=== PATIENT | female | born 1955 | race Caucasian/White ===

== ENCOUNTER 2020-12-10 12:08 | Inpatient (IN) | payer MEDICARE, OTHER, SELFPAY ==
[2020-12-10] VITALS (7 sets, daily range): BP systolic 155–187; BP diastolic 86–98; PULSE 74–96; RESP 16–20; TEMP 36.8–37.1; O2SAT 95–99; BMI 43.7
--- NOTE | ~2020-12-10 | US_ITS ---
EXAMINATION: US venous doppler [facility] DATE: 12/10/2020 13:56 INDICATION: Left lower limb pain and swelling TECHNIQUE: Jeffries scale images without and with compression and Doppler images of the left lower extrem ity veins were obtained. COMPARISON: None FINDINGS: The left common femoral vein, profunda femoral vein, femoral vein, popliteal vein, peroneal trunk, posterior tibial veins, and greater saphenous vein are patent. A 5.1 cm Wen's cyst is noted in the popliteal fossa. IMPRESSION: 1. Patent left lower extremity veins. No evidence of deep venous thrombosis. 2. Wen's cyst. Reviewed, dictated and finalized at location A. NT SERVER DEVELOPER
--- NOTE | ~2020-12-10 | CT_ITS ---
EXAMINATION: CTA chest PE protocol DATE: 12/10/2020 14:03 INDICATION: Shortness of breath, increasing over the past several days TECHNIQUE: Computed tomography angiography (CTA) of the chest was performed with 100 mL Omnipaque-350 intravenous contrast timed to evaluate the pulmonary arteries. Coronal maximum intensity projection 3D-reconstructions were created by the technologist. Automated exposure control and iterative reconst ruction technique were employed. Exam dose: 959.35 mGy-cm total exam DLP. COMPARISON: December 10, 2020 portable AP chest FINDINGS: There is diagnostic contrast enhancement of the pulmonary arteries and no evidence of pulmo nary embolism. No thoracic aortic aneurysm or dissection. Thyroid goiter with enlargement an inhomogeneous contrast enhancement involving particularly the left lobe of the thyroid gland. No hilar or mediastinal mass lesion or lymphadenopathy. No pericardial or pleural effusion. There are scattered bilateral patchy infiltrates suggesting extensive bilateral pneumonia. Status post cholecystectomy. Normal morphology of the adrenal glands. IMPRESSION: No evidence of pulmonary embolism Extensive scattered bilateral pulmonary infiltrates, suggesting bilateral pneumonia Reviewed, dictated and finalized at Location A. Reviewed, dictated and finalized at location B. ICATION DEVELOPMENT SPECIALIST IMPRESSION: No evidence of pulmonary embolism Extensive scattered bilateral pulmonary infiltrates, suggesting bilateral pneum onia
--- NOTE | ~2020-12-10 | XR_ITS ---
EXAMINATION: XR chest 1V portable INDICATION: Shortness of breath and hypertension TECHNIQUE: Portable AP chest at 1247 hours COMPARISON: 12/10/2020 FINDINGS: Diffuse opacities persist throughout all lung zones with slight worsening in the left mid a nd lower lung zones. There is no pleural effusion or pneumothorax. Cardiomegaly is noted. IMPRESSION: 1. Diffuse lung disease with interval worsening in the left mid and lower lung zones, consistent with pneumonia and pulmonary edema. Reviewed, dictated and finalized at location A. S CONTRACTOR
--- NOTE | ~2020-12-10 | XR_ITS ---
EXAMINATION: XR chest 1V portable INDICATION: Shortness of breath TECHNIQUE: Portable AP chest at 1301 hours COMPARISON: 06/10/2009 FINDINGS: There are diffuse opacities throughout all lung zones. No pleural effusion or pneumothorax is identified. The cardiomediastinal silhouette is normal. IMPRESSION: 1. Diffuse lung disease which may reflect pneumonia and/or pulmonary edema and/or atelectasis. Reviewed, dictated and finalized at location A. EN PRINTING LOADER UNLOADER IMPRESSION: 1. Diffuse lung disease which may reflect pneumonia and/or pulmonary edema and/ or atelectasis.
--- NOTE | 2020-12-10 12:23 | ECG_ITS ---
Measurements Intervals [place] Rate: 97 P: 8 OK: 128 QRS: 2 QRSD: 82 T: 33 QT: 338 QTc: 430 Interpretive Statements SINUS RHYTHM EARLY PRECORDIAL R/S TRANSITION VOLTAGE CRITERIA FOR LVH BORDERLINE ST ABNORMALITY- ANT/HIGH LAT LEADS BORDERLINE ECG Electronically Signed On 12-10-2020 13:05:22 SPANISH LECTURER by Maurizio Cr D.O.
[2020-12-10 12:49] LABS: Basophils Percent Auto 0.4 % (0.2-1.2); Eosinophils Percent Auto 0.4 % (0-4.4); Hematocrit 34.1 % (37.0-47.0); Hemoglobin 11.5 g/dL (12.0-15.0); Immature Granulocyte Absolute 0.05 K/mm3 (0.00-0.031); Immature Granulocyte Percent A 1.9 % (0-0.5); Lymphocytes Absolute Auto 0.58 K/mm3 (0.9-3.2); Lymphocytes Percent Auto 21.6 % (18.3-44.2); Mean Corpuscular HGB Conc 33.7 g/dl (32-36); Mean Corpuscular Hemoglobin 29.3 pg (26-34); Monocytes Absolute Auto 0.5 K/mm3 (0.1-0.6); Monocytes Percent Auto 18.3 % (2.6-8.5); Neutrophils Absolute Auto 1.5 K/mm3 (1.3-6.7); Neutrophils Percent Auto 57.4 % (45.5-73.1); Platelet Count Result 143 k/mm3 (150-375); Red Blood Count 3.92 M/mm3 (4.2-5.4); Red Cell Distribution Width 14.5 % (11.5-14.5); White Blood Count 2.7 K/mm3 (4.5-10.0)
--- NOTE | 2020-12-10 13:01 | PC.NURSE ---
Called lab to add on BNP, hepatic, trop baseline, pt inr ptt, d dimer
[2020-12-10 13:02] LABS: Anion Gap 6 mmol/L (8-16); Blood Urea Nitrogen 8 mg/dL (7-17); Calcium 8.4 mg/dL (8.4-10.2); Carbon Dioxide 22 mmol/L (22-30); Chloride 109 mmol/L (98-107); Estimated CRCL calculation 90 ml/min; Estimated Glomerular Filt Rate > 60; Glucose 100 mg/dL (65-105); Potassium 3.2 mmol/L (3.4-5.0); Sodium 137 mmol/L (137-145)
[2020-12-10 13:10] LABS: INR 0.9
[2020-12-10 13:11] LABS: Partial Thromboplastin Time 27.5 SECONDS (22.3-36.8)
[2020-12-10 13:13] LABS: D Dimer 0.83 ug/mL (<0.48)
[2020-12-10] MEDS: ALBUTEROL SULFATE (*SP) AEROSOL 1 PUFF 6 PUFF INHALATION (13:14)
[2020-12-10 13:22] LABS: Alveolar/Arterial O2 Gradient 42.8 mmHg; Carboxyhemoglobin 0.7 % THb (0-2.0); Fractional Inspired Oxygen 21 %; HCO3 ABG 19.4 mEq/l (22.0-26.0); Oxygen Content ABG 19.3 %vol (16.0-22.0); Oxygen Saturation ABG 96.6 % (95.0-100.0); Oxyhemoglobin 95.2 % THb (90.0-100.0); PCO2 ABG 25.1 mmHg (35.0-45.0); PO2 ABG 76.9 mmHg (80.0-100.0); PO2 FiO2 Ratio Arterial Blood 3.66 %; Reduced Hemoglobin 4.1 %THb (0-5.0); Total Hemoglobin 14.4 g/dL (12.0-18.0)
[2020-12-10 13:23] LABS: Device ROOM AIR; Modified Allen's Test Pass; Site Drawn LEFT RADIAL; pH ABG 7.505 (7.350-7.450)
[2020-12-10 13:30] LABS: Alanine Aminotransferase 33 U/L (4-35); Albumin Level 3.6 g/dL (3.5-5.1); Alkaline Phosphatase 116 U/L (38-126); Aspartate Amino Transferase 53 U/L (14-36); Bilirubin,Total 0.7 mg/dL (0.2-1.3)
[2020-12-10] MEDS: SODIUM CHLORIDE 0.9% IV 1,000 ML 999 ML IV CONT (13:30)
--- NOTE | 2020-12-10 13:35 | ED.GENADULT ---
HPI - General Adult General Chief complaint: Shortness of Breath/Dyspnea Stated complaint: wheezing Time Seen by Provider: 12/10/20 12:26 Source: patient Mode of arrival: ambulatory Limitations: other (poor historian) History of Present Illness HPI narrative: This patient is a 65 year old female with history of asthma, hypertension, DM, anxiety who presents for evaluation of not feeling well . Patient had a virtual visit today with her PCP who reports patient was having cough, sob with audible wheezing. PAtient reported that her home oxygen pulse oximeter was reading in the high 80s. Patient states she does not want to talk so she is answering I don't know to most of my questions. She does reports midsternal chest pain last night but will not go into detail. She has not chest pain now. She has been ill since 11/30/20. She reports low grade fever 2 days ago. She denies abdominal pain. She reports left leg pain. Related Data Home Medications Medication Instructions Recorded Confirmed albuterol sulfate [ProAir HFA] INHALATION 12/10/20 bupropion HCl mg PO 12/10/20 carisoprodol 12/10/20 diclofenac sodium TOPICAL 12/10/20 estradiol mg 12/10/20 12/10/20 fluoxetine mg 12/10/20 furosemide 12/10/20 leflunomide mg 12/10/20 losartan 12/10/20 metformin mg PO 12/10/20 metformin mg PO 12/10/20 methenamine hippurate g 12/10/20 metoprolol succinate PO 12/10/20 montelukast mg 12/10/20 potassium chloride meq PO 12/10/20 topiramate 12/10/20 verapamil mg PO 12/10/20 Allergies Allergy/AdvReac Type Severity Reaction Status Date / Time doxycycline Allergy Mild RASH Verified 12/10/20 12:21 erythromycin base Allergy Unknown RASH Verified 12/10/20 12:21 levofloxacin Allergy Unknown Other Verified 12/10/20 12:21 Penicillins Allergy Unknown Other Verified 12/10/20 12:21 Sulfa (Sulfonamide Allergy Unknown Other Verified 12/10/20 12:21 Antibiotics) Review of Systems Review of Systems: All systems reviewed & are unremarkable except as noted in HPI and below Constitutional: Constitutional: Reports fatigue and Reports fever(s) Cardiovascular: Cardiovascular: Reports chest pain Respiratory: Respiratory: Reports cough and Reports dyspnea Gastrointestinal: Gastrointestinal: Denies abdominal pain, Reports nausea and Denies vomiting Neurologic: Reports headache(s) Endocrine: Endocrine: Reports fatigue [facility] Past Medical History Medical History (Updated 12/10/20 @ 17:02 by Fe Yeager MD) Asthma Diabetes mellitus Hypertension Surgical History Surgical History (Updated 12/10/20 @ 13:37 by Fe Yeager MD) Hx of tonsillectomy Family History Family History (Updated 08/09/14 @ 09:43 by DOCTOR UNKNOWN) Other Cerebrovascular accident Diabetes mellitus Family history of arthritis Family history of cardiovascular disease Family history of gout Family history of malignant neoplasm Hypertension Social History Social History Smoking status: Never smoker Alcohol intake: current Exam Const: General: alert and ill appearing Nutritional Appearance: obese Orientation/consciousness: patient oriented x3 Eyes: Pupils: Equal, round and reactive pupils present EOM: EOMs intact bilaterally Chest: Chest palpation & inspection: normal inspection of the chest and abnormal inspection of the chest Resp: Effort & Inspection: no retractions, tachypneic and no use of accessory muscles Auscultation: wheezes and lung sounds not diminished Cardio: Rate: regular rate Rhythm: regular rhythm Heart sounds: no murmurs GI: GI Palp: Yes Soft to palpation, No Tenderness to palpation present (GI) and No Guarding due to palpation present (GI) Auscultation: normal bowel sounds Neuro: General: patient oriented x3 and moves all extremities Psych: Affect: Anxious affect present Course Reevaluation(s) Reevaluation #1: I discussed with patient that she has been found to have bi
[2020-12-10 13:38] LABS: NT Pro B Type Natriuretic Pept 162 PG/ML (5-100); Troponin I < 0.012 ng/mL (0.000-0.034)
[2020-12-10 13:45] LABS: Add Urine Microscopic? YES; Appearance Urine Clear (Clear); Bacteria Urine Trace /hpf; Bilirubin Urine Negative (Negative); Blood Urine Negative (Negative); Color Urine Yellow (Yellow); Glucose Urine UA Negative (Negative); Ketones Urine Negative (Negative); Leukocyte Esterase Ur 1+ LEU/UL (Negative); Mucus Urine Rare /lpf; Nitrate Urine Negative (Negative); Protein Urine 2+ mg/dL (Negative); Specific Grav Ur 1.018 (1.001-1.035); Squamous Epithelial Cell Urine Many /hpf (Few); Urobilinogen Urine Negative mg/dL (<2.0)
[2020-12-10] MEDS: predniSONE 20 MG TABLET 60 MG PO (13:45)
[2020-12-10] MEDS: ACETAMINOPHEN 500 MG TABLET 1000 MG (15:14)
--- NOTE | 2020-12-10 15:44 | PC.NURSE ---
1514- Tylenol given per verbal order by Dr. Yeager for headache
--- NOTE | 2020-12-10 16:45 | PC.NURSE ---
This patient, April Rutledge, was admitted to 3 [facility] Surg Room 313-01. Patient/family oriented to hospital policies and general routines including ID bracelet, bed and alarms, visiting hours, pain management, procedures, bathroom and other care routines, personal items, smoking policy, room service/diet, and visiting hours.Reprot received from SAHIL RN Patient/Family are encouraged to report perceived risks to care and to ask questions if they do not understand what they are told or what they should do.
[2020-12-10 18:38] LABS: Glucose Point of Care 155 (65-105)
[2020-12-10] MEDS: SODIUM CHLORIDE 0.9% IV 1,000 ML 125 ML IV CONT (18:40)
--- NOTE | 2020-12-10 22:49 | PM.IMHP ---
H&P: HPI History of Present Illness Date/Time: 12/10/20 22:49 Chief Complaint: Shortness breath Narrative: April Rutledge is a 65 year old female who has a history of asthma. The patient has been having a cough and shortness of breath with audible wheezing. The patient has been sick since 11/30/2020. The patient stated that she had gone to a and that the other people came up positive for COVID. The patient has been having some nausea and vomiting diarrhea. She is weak in she is short of breath. She had a virtual visit with her primary care doctor. Patient lives at home with her who is also sick. The patient has had a home pulse ox which was read on the upper 80s. Her temperature was 98.7?. CT a pulmonary no evidence of pulmonary embolism. Venous Dopplers patent left lower extremity veins no evidence of any daytime on versus and Wen cyst. Chest x-ray was read as diffuse lung disease which may reflect pneumonia and/or pulmonary edema and/or atelectasis. The patient was given albuterol, IV fluids, azithromycin, Rocephin and Tylenol Review of Systems Constitutional: Constitutional: Reports as per HPI and Reports no additional constitutional complaints Eyes: Eyes: Reports as per HPI and Reports no additional eye complaints ENT: Reports system reviewed and no additional complaints, except as documented and Reports Normal hearing present Cardiovascular: Cardiovascular: Reports no additional cardiovascular complaints Respiratory: Respiratory: Reports as per HPI and Reports no additional respiratory complaints Gastrointestinal: Gastrointestinal: Reports as per HPI and Reports no additional gastrointestinal complaints Genitourinary: Genitourinary: Reports no additional female genitourinary complaints Musculoskeletal: Musculoskeletal: Reports no additional musculoskeletal complaints Integumentary/Breasts: Skin/Breast: Reports system reviewed and no additional complaints, except as docu Neurologic: Reports system reviewed and no additional complaints, except as documented and Reports Normal hearing present Psychiatric: Psychiatric: Reports no additional psychiatric complaints and Reports as per HPI Hematologic/Lymphatic: Hematologic/Lymphatic: Reports no additional hematologic/lymphatic complaints Allergic/Immunologic: Allergic/Immunologic: Reports no additional allergic/immunologic complaints [facility] Past Medical History Medical History (Updated 12/10/20 @ 23:01 by Ilana Dawn NP) Asthma Chronic GERD Depression with anxiety Diabetes mellitus DM2 (diabetes mellitus, type 2) Hypertension Migraines Mitral valve prolapse Osteoarthritis Psoriatic arthritis Surgical History Surgical History (Updated 12/10/20 @ 23:01 by Ilana Dawn NP) H/O hand surgery Bilaterally H/O: hysterectomy History of ankle surgery Bilaterally History of salpingo-oophorectomy Hx of tonsillectomy Family History Family History Father Cerebrovascular accident Family history of gout Malignant neoplasm of prostate Mother Diabetes mellitus Family history of arthritis Family history of cardiovascular disease Family history of malignant neoplasm Hypertension Grandparent Diabetes mellitus Social History Social History (Updated 12/10/20 @ 23:03 by Ilana Dawn NP) Social History: The patient lives with her . The is a durable power admitted attorneys for healthcare. The patient is a full code. 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 Lifelong nonsmoker does not use marijuana or illicit drugs. Smoking status: Never smoker Alcohol intake: never Substance use: never Gender identity (if verbalized by the patient): Female Spiritual care concerns: No Meds Home Medications and Allergies Home Medications Medication Instructions Recorded Confirmed Type albuterol sulfate [ProAir HFA] 2 puff INHALATION Q6H PRN 12/10/20 0
[2020-12-10] MEDS: guaiFENesin/DEXTROMETHORPHAN 10 ML UDC PO (23:17)
[2020-12-10] MEDS: ACETAMINOPHEN 500 MG TABLET 1000 MG PO (23:17)
[2020-12-10] MEDS: MONTELUKAST SODIUM 10 MG TABLET PO (23:52)
[2020-12-10] MEDS: FLUoxetine HCL 20 MG CAPSULE 40 MG PO (23:52)
[2020-12-10] MEDS: AZELASTINE HCL NASAL 0.1% 137 MCG/SPR 30 ML BTL 2 SPRAY NASAL (23:52)
[2020-12-10] MEDS: ASCORBIC ACID 500 MG TABLET PO (23:52)
[2020-12-11] VITALS (7 sets, daily range): BP systolic 143–183; BP diastolic 70–90; PULSE 73–84; RESP 16–20; TEMP 36.1–36.6; O2SAT 96–99
[2020-12-11] MEDS: ALBUTEROL SULFATE (*SP) AEROSOL 1 PUFF 2 PUFF INHALATION ×4 (01:10→20:40)
[2020-12-11 02:14] LABS: Basophils Percent Auto 0.6 % (0.2-1.2); Hematocrit 31.7 % (37.0-47.0); Hemoglobin 10.5 g/dL (12.0-15.0); Immature Granulocyte Absolute 0.03 K/mm3 (0.00-0.031); Immature Granulocyte Percent A 1.8 % (0-0.5); Lymphocytes Absolute Auto 0.43 K/mm3 (0.9-3.2); Lymphocytes Percent Auto 26.2 % (18.3-44.2); Mean Corpuscular HGB Conc 33.1 g/dl (32-36); Mean Corpuscular Hemoglobin 28.8 pg (26-34); Mean Corpuscular Volume 87.1 fl (80-100); Mean Platelet Volume 9.9 fl (7.4-10.4); Monocytes Absolute Auto 0.3 K/mm3 (0.1-0.6); Monocytes Percent Auto 18.3 % (2.6-8.5); Neutrophils Absolute Auto 0.9 K/mm3 (1.3-6.7); Neutrophils Percent Auto 53.1 % (45.5-73.1); Platelet Count Result 154 k/mm3 (150-375); Red Blood Count 3.64 M/mm3 (4.2-5.4); Red Cell Distribution Width 14.5 % (11.5-14.5)
[2020-12-11 02:20] LABS: Alanine Aminotransferase 33 U/L (4-35); Albumin Level 3.4 g/dL (3.5-5.1); Alkaline Phosphatase 103 U/L (38-126); Anion Gap 7 mmol/L (8-16); Aspartate Amino Transferase 45 U/L (14-36); Bilirubin,Total 0.4 mg/dL (0.2-1.3); Blood Urea Nitrogen 9 mg/dL (7-17); Calcium 8.4 mg/dL (8.4-10.2); Carbon Dioxide 24 mmol/L (22-30); Chloride 111 mmol/L (98-107); Estimated CRCL calculation 90 ml/min; Estimated Glomerular Filt Rate > 60; Glucose 180 mg/dL (65-105); Potassium 3.5 mmol/L (3.4-5.0); Sodium 142 mmol/L (137-145)
[2020-12-11 02:24] LABS: Hemoglobin A1C 5.3 % (<5.7)
[2020-12-11 02:41] LABS: White Blood Count 1.6 K/mm3 (4.5-10.0)
[2020-12-11 08:35] LABS: Glucose Point of Care 109 (65-105)
[2020-12-11] MEDS: buPROPion HCL XL (24 HR) 150 MG TABCR 300 MG PO (09:36)
[2020-12-11] MEDS: VERAPAMIL HCL ER 240 MG TABLET.ER PO (09:36)
[2020-12-11] MEDS: LOSARTAN POTASSIUM 100 MG TABLET PO (09:36)
[2020-12-11] MEDS: AZELASTINE HCL NASAL 0.1% 137 MCG/SPR 30 ML BTL 2 SPRAY NASAL ×2 (09:37→20:40)
[2020-12-11] MEDS: guaiFENesin/DEXTROMETHORPHAN 10 ML UDC PO ×3 (09:37→20:40)
[2020-12-11] MEDS: METOPROLOL SUCCINATE EXT REL 50 MG TABCR PO (09:38)
[2020-12-11] MEDS: FOLIC ACID 1 MG TABLET PO (09:39)
[2020-12-11] MEDS: predniSONE 20 MG TABLET 60 MG PO (09:39)
[2020-12-11] MEDS: ENOXAPARIN 40 MG/0.4 ML SYRINGE SUB-Q (09:39)
[2020-12-11 13:12] LABS: SARS-CoV-2 RNA PCR Positive
[2020-12-11 13:14] LABS: Glucose Point of Care 96 (65-105)
[2020-12-11] MEDS: PANTOPRAZOLE 40 MG TABLET PO (15:52)
[2020-12-11 18:27] LABS: Glucose Point of Care 174 (65-105)
--- NOTE | 2020-12-11 18:54 | PM.IMPN ---
Progress Note: A&P Assessment and Plan (1) Community acquired pneumonia: Code(s): J18.9 - Pneumonia, unspecified organism Status: Acute Assessment and Plan: On Rocephin and Zithromax Ruling out Covid 19 (2) Person under investigation for COVID-19: Code(s): Z20.822 - Contact with and (suspected) exposure to COVID-19 Status: Acute Assessment and Plan: Awaiting serology Supportive care (3) Asthma with exacerbation: Code(s): J45.901 - Unspecified asthma with (acute) exacerbation Status: Acute Assessment and Plan: Breathing treatments. (4) Mitral valve prolapse: Code(s): I34.1 - Nonrheumatic mitral (valve) prolapse Status: Chronic Assessment and Plan: Stable Continue to monitor (5) Chronic GERD: Code(s): K21.9 - Gastro-esophageal reflux disease without esophagitis Status: Chronic Assessment and Plan: On PPI (6) Hypertension: Code(s): I10 - Essential (primary) hypertension Status: Chronic Assessment and Plan: Stable Continue home meds Continue to monitor (7) DM2 (diabetes mellitus, type 2): Code(s): E11.9 - Type 2 diabetes mellitus without complications Status: Chronic Assessment and Plan: Accu checks ACHS ISS as needed (8) Osteoarthritis: Code(s): M19.90 - Unspecified osteoarthritis, unspecified site Status: Chronic Assessment and Plan: Stable On Leflunomide (9) Psoriatic arthritis: Code(s): L40.50 - Arthropathic psoriasis, unspecified Status: Chronic Assessment and Plan: Stable On Leflunomide. Subjective Date/time seen: 12/11/20 18:54 Patient states that doesn't feel well. Review of Systems Review of Systems: Narrative: sob, dry cough x 3 days Constitutional: Constitutional: Reports fatigue, Reports lethargy and Reports malaise Comments: fevers, chills. ENT: Reports nasal congestion Cardiovascular: Comments: no chest pain, no orthopnea. Respiratory: Comments: dry cough, sob. Gastrointestinal: Comments: no n/v/abdominal/diarrhea Genitourinary: Comments: no pain or burning with urination. Musculoskeletal: Musculoskeletal: Reports myalgias Integumentary/Breasts: Comments: no rashes Exam Narrative: Exam Narrative: Lying in bed Const: General: no acute distress, alert, awake and ill appearing Nutritional Appearance: average body habitus Orientation/consciousness: patient oriented x3 Limitations: no limitations HENMT: Head: normal to inspection and normocephalic Ears: hearing grossly normal bilaterally General nose exam: Normal external nose present Face and sinus: normal facial exam Eyes: General: appearance normal, both eyes and all related structures Pupils: Equal, round and reactive pupils present EOM: EOMs intact bilaterally Neck: Neck: no lymphadenopathy, supple and no JVD Resp: Effort & Inspection: able to speak in complete sentences Auscultation: clear to auscultation bilaterally and diminished lung sounds Cardio: Jugular venous distension: no JVD Rate: regular rate Rhythm: regular rhythm GI: GI Palp: Yes Soft to palpation and Yes No hepatosplenomegaly present Skin: Rashes: no rashes Neuro: General: patient oriented x3 and CN's II-XI intact bilaterally Cranial nerves: Yes CN's II-XII intact bilaterally and Yes Equal, round and reactive pupils present Cognition (Neuro): normal cognition Speech: normal speech Motor exam (neuro): 5/5 motor strength present throughout Extrem: General: no pedal edema Objective Data Vital Signs Vital Signs: Vital Signs - 24 hr 12/10/20 20:00 12/10/20 22:00 12/11/20 00:00 Temperature 98.7 F 97 F L Pulse Rate 85 81 Respiratory Rate 18 16 Blood Pressure 155/86 H 163/87 H Pulse Oximetry 98 99 96 12/11/20 04:00 12/11/20 08:00 12/11/20 09:38 Temperature 97.8 F 97.6 F Pulse Rate 81 73 82 Respiratory Rate 16 16 Blood Pressure 173/87 H 183/90 H
[2020-12-11] MEDS: ASCORBIC ACID 500 MG TABLET PO (20:37)
[2020-12-11] MEDS: FLUoxetine HCL 20 MG CAPSULE 40 MG PO (20:37)
[2020-12-11] MEDS: MONTELUKAST SODIUM 10 MG TABLET PO (20:37)
[2020-12-11 21:28] LABS: Glucose Point of Care 190 (65-105)
[2020-12-11] MEDS: ACETAMINOPHEN 500 MG TABLET 1000 MG PO (22:52)
[2020-12-12] VITALS (8 sets, daily range): BP systolic 146–179; BP diastolic 62–93; PULSE 64–81; RESP 16–20; TEMP 36.5–36.9; O2SAT 96–100
[2020-12-12] MEDS: ALBUTEROL SULFATE (*SP) AEROSOL 1 PUFF 2 PUFF INHALATION ×4 (02:15→20:46)
[2020-12-12] MEDS: guaiFENesin/DEXTROMETHORPHAN 10 ML UDC PO ×4 (02:17→20:46)
[2020-12-12 09:36] LABS: Glucose Point of Care 77 (65-105)
[2020-12-12] MEDS: predniSONE 20 MG TABLET 60 MG PO (09:54)
[2020-12-12] MEDS: buPROPion HCL XL (24 HR) 150 MG TABCR 300 MG PO (09:54)
[2020-12-12] MEDS: AZELASTINE HCL NASAL 0.1% 137 MCG/SPR 30 ML BTL 2 SPRAY NASAL ×2 (09:54→20:46)
[2020-12-12] MEDS: METOPROLOL SUCCINATE EXT REL 50 MG TABCR PO (09:55)
[2020-12-12] MEDS: FOLIC ACID 1 MG TABLET PO (09:55)
[2020-12-12] MEDS: ENOXAPARIN 40 MG/0.4 ML SYRINGE SUB-Q (09:55)
[2020-12-12] MEDS: PANTOPRAZOLE 40 MG TABLET PO (09:56)
[2020-12-12] MEDS: VERAPAMIL HCL ER 240 MG TABLET.ER PO (09:56)
[2020-12-12] MEDS: LOSARTAN POTASSIUM 100 MG TABLET PO (09:56)
[2020-12-12 13:13] LABS: Glucose Point of Care 116 (65-105)
[2020-12-12 18:10] LABS: Glucose Point of Care 128 (65-105)
--- NOTE | 2020-12-12 18:23 | PM.IMPN ---
Progress Note: A&P Assessment and Plan (1) Pneumonia due to COVID-19 virus: Code(s): U07.1 - COVID-19; J12.82 - Pneumonia due to coronavirus disease 2019 Status: Acute Assessment and Plan: Patient clinically improved Does not meet criteria for Remdesivir Supportive care On coverage for bacterial pneumonia empirically (2) Community acquired pneumonia: Code(s): J18.9 - Pneumonia, unspecified organism Status: Acute Assessment and Plan: On Rocephin Allergy to Zithromax and Doxycycline Clinically improved (3) Asthma with exacerbation: Code(s): J45.901 - Unspecified asthma with (acute) exacerbation Status: Acute Assessment and Plan: Breathing treatments On po Prednisone (4) Mitral valve prolapse: Code(s): I34.1 - Nonrheumatic mitral (valve) prolapse Status: Chronic Assessment and Plan: Stable Continue to monitor (5) Chronic GERD: Code(s): K21.9 - Gastro-esophageal reflux disease without esophagitis Status: Chronic Assessment and Plan: On PPI (6) Hypertension: Code(s): I10 - Essential (primary) hypertension Status: Chronic Assessment and Plan: Stable continue to monitor (7) DM2 (diabetes mellitus, type 2): Code(s): E11.9 - Type 2 diabetes mellitus without complications Status: Chronic Assessment and Plan: Continue accu checks achs ISS as needed (8) Psoriatic arthritis: Code(s): L40.50 - Arthropathic psoriasis, unspecified Status: Chronic Assessment and Plan: On DMARD Subjective Date/time seen: 12/12/20 18:23 Patient states that she feels better today Review of Systems Review of Systems: Narrative: denies any issues. Constitutional: Comments: no fevers, no chills, no rigors. Cardiovascular: Comments: no chest pain, no sob, no pnd, no orthopnea. Respiratory: Comments: sob and dry cough. Gastrointestinal: Comments: no n/v/abdominal pain. Musculoskeletal: Comments: no joint pain. Integumentary/Breasts: Comments: no rashes. Neurologic: Comments: no sensory motor deficit Exam Narrative: Exam Narrative: Lying in bed. Const: General: comfortable, no acute distress, alert, awake, Physically active and ill appearing Nutritional Appearance: overweight Orientation/consciousness: patient oriented x3 Limitations: no limitations HENMT: Head: normal to inspection and normocephalic Ears: hearing grossly normal bilaterally General nose exam: Normal external nose present Face and sinus: normal facial exam Eyes: General: appearance normal, both eyes and all related structures Pupils: Equal, round and reactive pupils present EOM: EOMs intact bilaterally Neck: Neck: no lymphadenopathy, supple and no JVD Resp: Auscultation: clear to auscultation bilaterally and diminished lung sounds Cardio: Jugular venous distension: no JVD Rate: regular rate Rhythm: regular rhythm GI: GI Palp: Yes Soft to palpation and Yes No hepatosplenomegaly present Skin: Rashes: no rashes Neuro: General: patient oriented x3 and CN's II-XI intact bilaterally Cranial nerves: Yes CN's II-XII intact bilaterally and Yes Equal, round and reactive pupils present Cognition (Neuro): normal cognition Speech: normal speech Motor exam (neuro): 5/5 motor strength present throughout Extrem: General: no pedal edema Objective Data Vital Signs Vital Signs: Vital Signs - 24 hr 12/11/20 20:00 12/12/20 00:00 12/12/20 04:00 Temperature 97.8 F 98.1 F 97.7 F Pulse Rate 77 81 64 Respiratory Rate 20 20 20 Blood Pressure 171/70 H 160/62 H 160/82 H Pulse Oximetry 96 96 99 12/12/20 08:00 12/12/20 08:41 12/12/20 09:55 Temperature 97.9 F Pulse Rate 74 72 Respiratory Rate 16 Blood Pressure 179/93 H Pulse Oximetry 100 96 12/12/20 12:00 12/12/20 16:00 Temperature 98.3 F 98.0 F Pulse Rate 66 68 Respiratory Rate 20 20 Blood Pressure 171/82 H 146/82 H Pulse Oximetry 100 9
[2020-12-12] MEDS: FLUoxetine HCL 20 MG CAPSULE 40 MG PO (20:45)
[2020-12-12] MEDS: ASCORBIC ACID 500 MG TABLET PO (20:45)
[2020-12-12] MEDS: MONTELUKAST SODIUM 10 MG TABLET PO (20:45)
[2020-12-12 22:15] LABS: Glucose Point of Care 149 (65-105)
[2020-12-13] VITALS (7 sets, daily range): BP systolic 154–171; BP diastolic 68–88; PULSE 66–75; RESP 18–20; TEMP 36.2–36.7; O2SAT 97–99
[2020-12-13 06:26] LABS: Basophils Percent Auto 0.4 % (0.2-1.2); Hematocrit 32.4 % (37.0-47.0); Hemoglobin 10.7 g/dL (12.0-15.0); Immature Granulocyte Absolute 0.07 K/mm3 (0.00-0.031); Immature Granulocyte Percent A 1.3 % (0-0.5); Lymphocytes Absolute Auto 0.92 K/mm3 (0.9-3.2); Lymphocytes Percent Auto 17.4 % (18.3-44.2); Mean Corpuscular Hemoglobin 29.3 pg (26-34); Mean Corpuscular Volume 88.8 fl (80-100); Mean Platelet Volume 10.1 fl (7.4-10.4); Monocytes Absolute Auto 0.7 K/mm3 (0.1-0.6); Monocytes Percent Auto 12.6 % (2.6-8.5); Neutrophils Absolute Auto 3.6 K/mm3 (1.3-6.7); Neutrophils Percent Auto 68.3 % (45.5-73.1); Platelet Count Result 192 k/mm3 (150-375); Red Blood Count 3.65 M/mm3 (4.2-5.4); Red Cell Distribution Width 14.6 % (11.5-14.5); White Blood Count 5.3 K/mm3 (4.5-10.0)
[2020-12-13 06:40] LABS: Anion Gap 4 mmol/L (8-16); Blood Urea Nitrogen 20 mg/dL (7-17); Calcium 8.5 mg/dL (8.4-10.2); Carbon Dioxide 26 mmol/L (22-30); Chloride 111 mmol/L (98-107); Estimated CRCL calculation 103 ml/min; Estimated Glomerular Filt Rate > 60; Glucose 86 mg/dL (65-105); Potassium 3.3 mmol/L (3.4-5.0); Sodium 141 mmol/L (137-145)
[2020-12-13 08:13] LABS: Glucose Point of Care 70 (65-105)
[2020-12-13] MEDS: VERAPAMIL HCL ER 240 MG TABLET.ER PO (10:21)
[2020-12-13] MEDS: predniSONE 20 MG TABLET 60 MG PO (10:21)
[2020-12-13] MEDS: ENOXAPARIN 40 MG/0.4 ML SYRINGE SUB-Q (10:21)
[2020-12-13] MEDS: LOSARTAN POTASSIUM 100 MG TABLET PO (10:22)
[2020-12-13] MEDS: AZELASTINE HCL NASAL 0.1% 137 MCG/SPR 30 ML BTL 2 SPRAY NASAL ×2 (10:22→22:01)
[2020-12-13] MEDS: METOPROLOL SUCCINATE EXT REL 50 MG TABCR PO (10:22)
[2020-12-13] MEDS: FOLIC ACID 1 MG TABLET PO (10:22)
[2020-12-13] MEDS: ALBUTEROL SULFATE (*SP) AEROSOL 1 PUFF 2 PUFF INHALATION ×3 (10:22→22:00)
[2020-12-13] MEDS: buPROPion HCL XL (24 HR) 150 MG TABCR 300 MG PO (10:22)
[2020-12-13] MEDS: PANTOPRAZOLE 40 MG TABLET PO (11:10)
[2020-12-13] MEDS: ACETAMINOPHEN 500 MG TABLET 1000 MG PO ×2 (11:14→22:07)
[2020-12-13] MEDS: DEXAMETHASONE SOD PHOS INJ 4 MG/ML VIAL 6 MG IV PUSH (13:15)
--- NOTE | 2020-12-13 17:11 | PM.IMPN ---
Progress Note: A&P Assessment and Plan (1) Pneumonia due to COVID-19 virus: Code(s): U07.1 - COVID-19; J12.82 - Pneumonia due to coronavirus disease 2019 Status: Acute Assessment and Plan: On Rocephin Zithromax discontinued due to listed allergy Started Remesivir + Dexamethasone Chest xr with worsening infiltrates (2) Mitral valve prolapse: Code(s): I34.1 - Nonrheumatic mitral (valve) prolapse Status: Chronic Assessment and Plan: Stable (3) Chronic GERD: Code(s): K21.9 - Gastro-esophageal reflux disease without esophagitis Status: Chronic Assessment and Plan: PPI (4) Hypertension: Code(s): I10 - Essential (primary) hypertension Status: Chronic Assessment and Plan: Stable Continue home meds (5) DM2 (diabetes mellitus, type 2): Code(s): E11.9 - Type 2 diabetes mellitus without complications Status: Chronic Assessment and Plan: ISS as needed In the 150's (6) Osteoarthritis: Code(s): M19.90 - Unspecified osteoarthritis, unspecified site Status: Chronic Assessment and Plan: Continue DEMARD B/L shoulder pain Tylenol prn (7) Psoriatic arthritis: Code(s): L40.50 - Arthropathic psoriasis, unspecified Status: Chronic Assessment and Plan: Continue DMARD Stable (8) Community acquired pneumonia: Code(s): J18.9 - Pneumonia, unspecified organism Status: Acute Assessment and Plan: Worsening infiltrates. (9) Asthma with exacerbation: Code(s): J45.901 - Unspecified asthma with (acute) exacerbation Status: Acute Assessment and Plan: Breathing treatments Dexamethasone (10) Suspected COVID-19 virus infection: Code(s): Z20.822 - Contact with and (suspected) exposure to COVID-19 Status: Acute Assessment and Plan: Ruled in Started Remdesivir Will give convalescent plasma Subjective Date/time seen: 12/13/20 17:11 Patient states that does not feel well today. Review of Systems Review of Systems: Narrative: sob, cough Constitutional: Constitutional: Reports fatigue Cardiovascular: Comments: no pnd, no orthopnea. Respiratory: Comments: sob, cough Gastrointestinal: Comments: no n/v/abdominal pain. Genitourinary: Comments: no pain or burning with urination. Musculoskeletal: Comments: B/L shoulder pain. Integumentary/Breasts: Comments: no rashes Neurologic: Comments: no focal sensory motor deficit. Exam Narrative: Exam Narrative: Lying in bed. Const: General: cooperative, no acute distress, alert, awake and ill appearing Nutritional Appearance: overweight Orientation/consciousness: patient oriented x3 HENMT: Head: normocephalic Ears: hearing grossly normal bilaterally General nose exam: Normal external nose present Face and sinus: normal facial exam Eyes: General: appearance normal, both eyes and all related structures Pupils: Equal, round and reactive pupils present EOM: EOMs intact bilaterally Neck: Neck: no lymphadenopathy, supple and no JVD Resp: Effort & Inspection: audible wheezes Auscultation: diminished lung sounds Cardio: Jugular venous distension: no JVD Rate: regular rate Rhythm: regular rhythm GI: GI Palp: Yes Soft to palpation and Yes No hepatosplenomegaly present Skin: Lesions: no lesions Rashes: no rashes Wounds: no wounds Neuro: General: patient oriented x3 and CN's II-XI intact bilaterally Cranial nerves: Yes CN's II-XII intact bilaterally and Yes Equal, round and reactive pupils present Cognition (Neuro): normal cognition Speech: normal speech Motor exam (neuro): 5/5 motor strength present throughout Extrem: General: no pedal edema Objective Data Vital Signs Vital Signs: Vital Signs - 24 hr 12/12/20 22:00 12/13/20 06:00 12/13/20 08:00 Temperature 98.4 F 97.6 F 97.6 F Pulse Rate 69 66 71 Respiratory Rate 18 18 20 Blood Pressure 151/78 H 154/88 H 170/68 H Pulse Oximet
[2020-12-13] MEDS: REMDESIVIR 200 MG/NS 250 ML 200 MG/250 ML BAG 250 MG IVPB (18:31)
[2020-12-13] MEDS: guaiFENesin/DEXTROMETHORPHAN 10 ML UDC PO (18:34)
[2020-12-13 18:41] LABS: Glucose Point of Care 146 (65-105)
[2020-12-13 18:50] LABS: Alanine Aminotransferase 33 U/L (4-35); Estimated CRCL calculation 80 ml/min; Estimated Glomerular Filt Rate > 60
[2020-12-13 20:13] LABS: Glucose Point of Care 100 (65-105)
[2020-12-13 20:41] LABS: Glucose Point of Care 162 (65-105)
[2020-12-13] MEDS: MONTELUKAST SODIUM 10 MG TABLET PO (22:00)
[2020-12-13] MEDS: ASCORBIC ACID 500 MG TABLET PO (22:00)
[2020-12-13] MEDS: FLUoxetine HCL 20 MG CAPSULE 40 MG PO (22:01)
[2020-12-14] VITALS (12 sets, daily range): BP systolic 150–180; BP diastolic 65–97; PULSE 61–73; RESP 16–20; TEMP 36.2–36.8; O2SAT 97–100
[2020-12-14 06:45] LABS: Alanine Aminotransferase 30 U/L (4-35); Estimated CRCL calculation 90 ml/min; Estimated Glomerular Filt Rate > 60
[2020-12-14 07:39] LABS: Glucose Point of Care 103 (65-105)
[2020-12-14 08:55] LABS: Basophils Percent Auto 0.3 % (0.2-1.2); Hematocrit 30.7 % (37.0-47.0); Hemoglobin 10.2 g/dL (12.0-15.0); Immature Granulocyte Absolute 0.08 K/mm3 (0.00-0.031); Immature Granulocyte Percent A 2.6 % (0-0.5); Lymphocytes Absolute Auto 0.55 K/mm3 (0.9-3.2); Lymphocytes Percent Auto 17.7 % (18.3-44.2); Mean Corpuscular HGB Conc 33.2 g/dl (32-36); Mean Corpuscular Hemoglobin 29.1 pg (26-34); Mean Corpuscular Volume 87.5 fl (80-100); Mean Platelet Volume 10.4 fl (7.4-10.4); Monocytes Absolute Auto 0.5 K/mm3 (0.1-0.6); Neutrophils Absolute Auto 1.9 K/mm3 (1.3-6.7); Neutrophils Percent Auto 62.4 % (45.5-73.1); Platelet Count Result 216 k/mm3 (150-375); Red Blood Count 3.51 M/mm3 (4.2-5.4); Red Cell Distribution Width 14.4 % (11.5-14.5); White Blood Count 3.1 K/mm3 (4.5-10.0)
[2020-12-14 09:07] LABS: Anion Gap 7 mmol/L (8-16); Blood Urea Nitrogen 17 mg/dL (7-17); Calcium 8.5 mg/dL (8.4-10.2); Carbon Dioxide 23 mmol/L (22-30); Chloride 110 mmol/L (98-107); Estimated CRCL calculation 103 ml/min; Estimated Glomerular Filt Rate > 60; Glucose 111 mg/dL (65-105); Potassium 3.1 mmol/L (3.4-5.0); Sodium 140 mmol/L (137-145)
[2020-12-14] MEDS: AZELASTINE HCL NASAL 0.1% 137 MCG/SPR 30 ML BTL 2 SPRAY NASAL ×2 (09:30→21:11)
[2020-12-14] MEDS: buPROPion HCL XL (24 HR) 150 MG TABCR 300 MG PO (09:32)
[2020-12-14] MEDS: DEXAMETHASONE SOD PHOS INJ 4 MG/ML VIAL 6 MG IV PUSH (09:33)
[2020-12-14] MEDS: FOLIC ACID 1 MG TABLET PO (09:33)
[2020-12-14] MEDS: ENOXAPARIN 40 MG/0.4 ML SYRINGE SUB-Q (09:33)
[2020-12-14] MEDS: LOSARTAN POTASSIUM 100 MG TABLET PO (09:33)
[2020-12-14] MEDS: METOPROLOL SUCCINATE EXT REL 50 MG TABCR PO (09:33)
[2020-12-14] MEDS: PANTOPRAZOLE 40 MG TABLET PO (09:34)
[2020-12-14] MEDS: VERAPAMIL HCL ER 240 MG TABLET.ER PO (09:34)
[2020-12-14] MEDS: ALBUTEROL SULFATE (*SP) AEROSOL 1 PUFF 2 PUFF INHALATION ×3 (09:42→21:12)
[2020-12-14] MEDS: guaiFENesin/DEXTROMETHORPHAN 10 ML UDC PO (11:02)
[2020-12-14 11:49] LABS: Glucose Point of Care 97 (65-105)
[2020-12-14] MEDS: SODIUM CHLORIDE 0.9% IV 250 ML (13:27)
[2020-12-14] MEDS: ACETAMINOPHEN 500 MG TABLET 1000 MG PO (13:33)
--- NOTE | 2020-12-14 16:06 | PM.IMPN ---
Progress Note: A&P Assessment and Plan (1) Pneumonia due to COVID-19 virus: Code(s): U07.1 - COVID-19; J12.82 - Pneumonia due to coronavirus disease 2019 Status: Acute Assessment and Plan: On Remdesivir and Dexamethasone On antibacterial for added coverage as well Convalescent plasma Supportive care (2) Osteoarthritis: Code(s): M19.90 - Unspecified osteoarthritis, unspecified site Status: Chronic Assessment and Plan: On DEMARD's (3) Psoriatic arthritis: Code(s): L40.50 - Arthropathic psoriasis, unspecified Status: Chronic Assessment and Plan: On DEMARD's (4) Migraines: Code(s): G43.909 - Migraine, unspecified, not intractable, without status migrainosus Status: Chronic Assessment and Plan: Tylenol prn (5) Mitral valve prolapse: Code(s): I34.1 - Nonrheumatic mitral (valve) prolapse Status: Chronic Assessment and Plan: Stable Continue to monitor (6) Chronic GERD: Code(s): K21.9 - Gastro-esophageal reflux disease without esophagitis Status: Chronic Assessment and Plan: PPI (7) Hypertension: Code(s): I10 - Essential (primary) hypertension Status: Chronic Assessment and Plan: Stable Continue home meds Continue to monitor Subjective Date/time seen: 12/14/20 16:06 I feel much better today Review of Systems Review of Systems: Narrative: B/L shoulder pain, nasal congestion, no new issues overnight. Constitutional: Constitutional: Reports body ache(s), Reports fatigue, Reports headache(s), Reports malaise and Reports night sweats ENT: Reports nasal congestion Cardiovascular: Comments: no chest pain, no leg swelling, no palpitations Respiratory: Comments: dry cough. Gastrointestinal: Comments: no n/v/abdominal pain. Musculoskeletal: Comments: b/l shoulder pain. Integumentary/Breasts: Comments: no rashes. Neurologic: Comments: no sensory motor deficit. Exam Narrative: Exam Narrative: Sitting by edge of the bed. Const: General: comfortable, no acute distress, alert, awake, Physically active and ill appearing Nutritional Appearance: overweight Orientation/consciousness: patient oriented x3 HENMT: Head: normocephalic Ears: hearing grossly normal bilaterally General nose exam: Normal external nose present Face and sinus: normal facial exam Eyes: General: appearance normal, both eyes and all related structures Pupils: Equal, round and reactive pupils present EOM: EOMs intact bilaterally Neck: Neck: no lymphadenopathy, supple and no JVD Resp: Effort & Inspection: normal respiratory effort and able to speak in complete sentences Auscultation: clear to auscultation bilaterally Cardio: Jugular venous distension: no JVD Rate: regular rate Rhythm: regular rhythm GI: Inspection: obesity GI Palp: Yes Soft to palpation and Yes No hepatosplenomegaly present Skin: Rashes: no rashes Neuro: General: patient oriented x3 and CN's II-XI intact bilaterally Cranial nerves: Yes CN's II-XII intact bilaterally and Yes Bilaterally intact EOM present Cognition (Neuro): normal cognition Speech: normal speech Motor exam (neuro): 5/5 motor strength present throughout Extrem: General: no pedal edema Objective Data Vital Signs Vital Signs: Vital Signs - 24 hr 12/13/20 18:00 12/13/20 21:33 12/14/20 00:00 Temperature 97.1 F L 97.6 F Pulse Rate 69 63 Respiratory Rate 18 18 Blood Pressure 171/82 H 154/85 H Pulse Oximetry 98 98 97 12/14/20 06:00 12/14/20 07:14 12/14/20 08:00 Temperature 97.4 F L 98.1 F Pulse Rate 64 61 Respiratory Rate 18 16 Blood Pressure 177/82 H 150/82 H 170/83 H Pulse Oximetry 98 99 12/14/20 09:33 12/14/20 12:00 12/14/20 13:21 Temperature 98.3 F 97.8 F Pulse Rate 64 70 73 Respiratory Rate 20 18 Blood Pressure 180/65 H 155/97 H Pulse Oximetry 99 98 12/14/20 13:42 12/14/20 14:27 Temperature 98.1 F 98.1 F Pulse Rate 71 6
[2020-12-14 17:20] LABS: Glucose Point of Care 140 (65-105)
[2020-12-14] MEDS: REMDESIVIR 100 MG/NS 250 ML 100 MG/250 ML BAG 250 MG IVPB (21:12)
[2020-12-14] MEDS: FLUoxetine HCL 20 MG CAPSULE 40 MG PO (21:16)
[2020-12-14] MEDS: MONTELUKAST SODIUM 10 MG TABLET PO (21:17)
[2020-12-14] MEDS: ASCORBIC ACID 500 MG TABLET PO (21:18)
[2020-12-14 21:58] LABS: Glucose Point of Care 152 (65-105)
[2020-12-15] MEDS: ALBUTEROL SULFATE (*SP) AEROSOL 1 PUFF 2 PUFF INHALATION ×4 (03:15→20:41)
[2020-12-15 05:00] VITALS: BP 154/69; PULSE 65; RESP 20; TEMP 36.3; O2SAT 99
[2020-12-15 06:53] LABS: Alanine Aminotransferase 32 U/L (4-35); Estimated CRCL calculation 103 ml/min; Estimated Glomerular Filt Rate > 60
[2020-12-15 07:33] LABS: Glucose Point of Care 115 (65-105)
[2020-12-15 08:00] VITALS: BP 175/97; PULSE 64; RESP 18; TEMP 36.7; O2SAT 100
[2020-12-15] MEDS: ENOXAPARIN 40 MG/0.4 ML SYRINGE SUB-Q (08:02)
[2020-12-15] MEDS: FOLIC ACID 1 MG TABLET PO (08:02)
[2020-12-15] MEDS: DEXAMETHASONE SOD PHOS INJ 4 MG/ML VIAL 6 MG IV PUSH (08:02)
[2020-12-15] MEDS: AZELASTINE HCL NASAL 0.1% 137 MCG/SPR 30 ML BTL 2 SPRAY NASAL ×2 (08:02→20:39)
[2020-12-15 08:03] VITALS: PULSE 64
[2020-12-15] MEDS: LOSARTAN POTASSIUM 100 MG TABLET PO (08:03)
[2020-12-15] MEDS: PANTOPRAZOLE 40 MG TABLET PO (08:03)
[2020-12-15] MEDS: METOPROLOL SUCCINATE EXT REL 50 MG TABCR PO (08:03)
[2020-12-15] MEDS: buPROPion HCL XL (24 HR) 150 MG TABCR 300 MG PO (08:03)
[2020-12-15] MEDS: VERAPAMIL HCL ER 240 MG TABLET.ER PO (08:04)
[2020-12-15 11:54] LABS: Glucose Point of Care 111 (65-105)
[2020-12-15 12:00] VITALS: BP 177/81; PULSE 66; RESP 16; TEMP 36.7; O2SAT 99
[2020-12-15 16:00] VITALS: BP 156/88; PULSE 71; RESP 18; TEMP 36.7; O2SAT 98
--- NOTE | 2020-12-15 16:32 | PM.IMPN ---
Progress Note: A&P Assessment and Plan (1) Pneumonia due to COVID-19 virus: Code(s): U07.1 - COVID-19; J12.82 - Pneumonia due to coronavirus disease 2019 Status: Acute Assessment and Plan: Received convalescent plasma Improved Continue Remdesivir/Dexamethasone (2) Mitral valve prolapse: Code(s): I34.1 - Nonrheumatic mitral (valve) prolapse Status: Chronic Assessment and Plan: Stable Continue to monitor (3) DM2 (diabetes mellitus, type 2): Code(s): E11.9 - Type 2 diabetes mellitus without complications Status: Chronic Assessment and Plan: Accu checks ACHS. ISS as needed (4) Osteoarthritis: Code(s): M19.90 - Unspecified osteoarthritis, unspecified site Status: Chronic Assessment and Plan: On DMARD's (5) Community acquired pneumonia: Code(s): J18.9 - Pneumonia, unspecified organism Status: Acute Assessment and Plan: On antibacterial added coverage. (6) Asthma with exacerbation: Code(s): J45.901 - Unspecified asthma with (acute) exacerbation Status: Acute Assessment and Plan: Stable Continue breathing treatments Subjective Date/time seen: 12/15/20 16:33 'I feel much better since receiving the plasma Review of Systems Review of Systems: Narrative: No new issues. Exam Narrative: Exam Narrative: Lying in bed. Const: General: cooperative, comfortable, no acute distress, alert, awake and Physically active Nutritional Appearance: overweight Orientation/consciousness: patient oriented x3 HENMT: Head: normal to inspection and normocephalic Ears: hearing grossly normal bilaterally General nose exam: Normal external nose present Face and sinus: normal facial exam Eyes: General: appearance normal, both eyes and all related structures Pupils: Equal, round and reactive pupils present EOM: EOMs intact bilaterally Neck: Neck: no lymphadenopathy, supple and no JVD Lymphatic: no lymphadenopathy noted Resp: Effort & Inspection: able to speak in complete sentences Auscultation: clear to auscultation bilaterally Cardio: Jugular venous distension: no JVD Rate: regular rate Rhythm: regular rhythm GI: GI Palp: Yes Soft to palpation and Yes No hepatosplenomegaly present Skin: Rashes: no rashes Neuro: General: patient oriented x3 and CN's II-XI intact bilaterally Cranial nerves: Yes CN's II-XII intact bilaterally and Yes Bilaterally intact EOM present Extrem: General: no pedal edema Objective Data Vital Signs Vital Signs: Vital Signs - 24 hr 12/14/20 17:22 12/14/20 21:00 12/14/20 23:58 Temperature 98.1 F 97.1 F L 97.8 F Pulse Rate 70 62 62 Respiratory Rate 16 20 20 Blood Pressure 152/81 H 157/76 H 170/91 H Pulse Oximetry 99 100 100 12/15/20 05:00 12/15/20 08:00 12/15/20 08:03 Temperature 97.4 F L 98.1 F Pulse Rate 65 64 64 Respiratory Rate 20 18 Blood Pressure 154/69 H 175/97 H Pulse Oximetry 99 100 12/15/20 12:00 12/15/20 16:00 Temperature 98.1 F 98.1 F Pulse Rate 66 71 Respiratory Rate 16 18 Blood Pressure 177/81 H 156/88 H Pulse Oximetry 99 98 Intake/Output Intake/Output: Intake & Output 12/12/20 12/13/20 12/14/20 12/15/20 23:59 23:59 23:59 23:59 Intake Total 2540 2190 2423 910 Output Total 3100 1300 2625 1100 Balance -560 416 -202 -186 Meds/Results Medications: Active Medications Generic Name Dose Route Start Last Admin Trade Name Freq PRN Reason Stop Dose Admin Acetaminophen 1,000 mg 12/10/20 22:37 12/14/20 13:33 Acetaminophen 500 Mg Tablet PO 1,000 mg Q6H PRN Administration Mild Pain (1-3) or Fever Albuterol 2 puff 12/11/20 02:00 12/15/20 14:37 Albuterol Sulfate (*Sp) Aerosol 1 Puff INHALATION 2 puff Q6HRT ARIEL Administration Ascorbic Acid 500 mg 12/10/20 23:25 12/14/20 21:18 Ascorbic Acid 500 Mg Tablet PO 500 mg HS ARIEL Administration Azelastine HCl 2 spray 12/10/20 23:10 12/15/20 08:02 Azelastine Hcl
[2020-12-15 17:26] LABS: Glucose Point of Care 130 (65-105)
[2020-12-15 20:00] VITALS: BP 154/95; PULSE 76; RESP 20; TEMP 36.9; O2SAT 100
[2020-12-15] MEDS: ASCORBIC ACID 500 MG TABLET PO (20:33)
[2020-12-15] MEDS: MONTELUKAST SODIUM 10 MG TABLET PO (20:34)
[2020-12-15] MEDS: ACETAMINOPHEN 500 MG TABLET 1000 MG PO (20:34)
[2020-12-15] MEDS: FLUoxetine HCL 20 MG CAPSULE 40 MG PO (20:34)
[2020-12-15] MEDS: REMDESIVIR 100 MG/NS 250 ML 100 MG/250 ML BAG 250 MG IVPB (20:36)
[2020-12-15 20:59] LABS: Glucose Point of Care 158 (65-105)
[2020-12-16] VITALS (7 sets, daily range): BP systolic 157–203; BP diastolic 66–89; PULSE 60–73; RESP 18–20; TEMP 36.2–36.9; O2SAT 92–100
[2020-12-16] MEDS: ALBUTEROL SULFATE (*SP) AEROSOL 1 PUFF 2 PUFF INHALATION ×4 (02:00→20:06)
[2020-12-16 06:26] LABS: Alanine Aminotransferase 27 U/L (4-35); Estimated CRCL calculation 103 ml/min; Estimated Glomerular Filt Rate > 60
[2020-12-16 08:26] LABS: Glucose Point of Care 106 (65-105)
[2020-12-16] MEDS: VERAPAMIL HCL ER 240 MG TABLET.ER PO (08:43)
[2020-12-16] MEDS: METOPROLOL SUCCINATE EXT REL 50 MG TABCR PO (08:43)
[2020-12-16] MEDS: AZELASTINE HCL NASAL 0.1% 137 MCG/SPR 30 ML BTL 2 SPRAY NASAL ×2 (08:43→20:07)
[2020-12-16] MEDS: buPROPion HCL XL (24 HR) 150 MG TABCR 300 MG PO (08:46)
[2020-12-16] MEDS: DEXAMETHASONE SOD PHOS INJ 4 MG/ML VIAL 6 MG IV PUSH (08:47)
[2020-12-16] MEDS: PANTOPRAZOLE 40 MG TABLET PO (08:47)
[2020-12-16] MEDS: ENOXAPARIN 40 MG/0.4 ML SYRINGE SUB-Q (08:47)
[2020-12-16] MEDS: LOSARTAN POTASSIUM 100 MG TABLET PO (08:47)
[2020-12-16] MEDS: FOLIC ACID 1 MG TABLET PO (08:47)
[2020-12-16] MEDS: ACETAMINOPHEN 500 MG TABLET 1000 MG PO ×2 (09:50→20:30)
[2020-12-16 11:57] LABS: Glucose Point of Care 106 (65-105)
[2020-12-16] MEDS: hydrALAZINE HCL 20 MG/ML VIAL 10 MG IV PUSH (13:30)
[2020-12-16 17:12] LABS: Glucose Point of Care 147 (65-105)
--- NOTE | 2020-12-16 18:06 | PM.IMPN ---
Progress Note: A&P Assessment and Plan (1) Pneumonia due to COVID-19 virus: Code(s): U07.1 - COVID-19; J12.82 - Pneumonia due to coronavirus disease 2019 Status: Acute Assessment and Plan: On Remdesivir and Dexamethasone Added antibacterial coverage (2) Mitral valve prolapse: Code(s): I34.1 - Nonrheumatic mitral (valve) prolapse Status: Chronic Assessment and Plan: Stable. (3) Chronic GERD: Code(s): K21.9 - Gastro-esophageal reflux disease without esophagitis Status: Chronic Assessment and Plan: PPI (4) Hypertension: Code(s): I10 - Essential (primary) hypertension Status: Chronic Assessment and Plan: Uncontrolled On no meds Hydralazine prn Will start Lisinopril at 10 mg po daily. (5) DM2 (diabetes mellitus, type 2): Code(s): E11.9 - Type 2 diabetes mellitus without complications Status: Chronic Assessment and Plan: ADA ISS as needed (6) Osteoarthritis: Code(s): M19.90 - Unspecified osteoarthritis, unspecified site Status: Chronic Assessment and Plan: Stable On DMARD's (7) Migraines: Code(s): G43.909 - Migraine, unspecified, not intractable, without status migrainosus Status: Chronic Assessment and Plan: Tylenol prn (8) Psoriatic arthritis: Code(s): L40.50 - Arthropathic psoriasis, unspecified Status: Chronic Assessment and Plan: Stable On DMARD's Subjective Date/time seen: 12/16/20 18:06 States that she feels much better. Review of Systems Review of Systems: Narrative: No new issues overnight no new complains All systems reviewed & are unremarkable except as noted in HPI and below (hpi, ) Exam Narrative: Exam Narrative: Lying in bed Const: General: comfortable, no acute distress, alert, awake and Physically active Nutritional Appearance: overweight Orientation/consciousness: patient oriented x3 Limitations: no limitations HENMT: Head: normal to inspection and normocephalic Ears: hearing grossly normal bilaterally General nose exam: Normal external nose present Face and sinus: normal facial exam Eyes: General: appearance normal, both eyes and all related structures Pupils: Equal, round and reactive pupils present EOM: EOMs intact bilaterally Neck: Neck: no lymphadenopathy, supple and no JVD Resp: Effort & Inspection: able to speak in complete sentences Auscultation: clear to auscultation bilaterally Cardio: Jugular venous distension: no JVD Rate: regular rate Rhythm: regular rhythm GI: GI Palp: Yes Soft to palpation and Yes No hepatosplenomegaly present Skin: Rashes: no rashes Neuro: General: patient oriented x3 and CN's II-XI intact bilaterally Cranial nerves: Yes CN's II-XII intact bilaterally and Yes Equal, round and reactive pupils present Cognition (Neuro): normal cognition Speech: normal speech Motor exam (neuro): 5/5 motor strength present throughout Extrem: General: no pedal edema Objective Data Vital Signs Vital Signs: Vital Signs - 24 hr 12/15/20 20:00 12/16/20 00:00 12/16/20 04:00 Temperature 98.4 F 97.8 F 97.3 F L Pulse Rate 76 60 64 Respiratory Rate 20 20 20 Blood Pressure 154/95 H 157/89 H 179/66 H Pulse Oximetry 100 98 99 12/16/20 08:00 12/16/20 08:43 12/16/20 12:00 Temperature 97.3 F L 97.3 F L Pulse Rate 64 65 73 Respiratory Rate 18 18 Blood Pressure 198/86 H 203/86 H Pulse Oximetry 100 92 Intake/Output Intake/Output: Intake & Output 12/13/20 12/14/20 12/15/20 12/16/20 23:59 23:59 23:59 23:59 Intake Total 2190 2423 1720 1030 Output Total 1300 2625 2900 2200 Balance 890 202 -1180 -1170 Meds/Results Medications: Active Medications Generic Name Dose Route Start Last Admin Trade Name Freq PRN Reason Stop Dose Admin Acetaminophen 1,000 mg 12/10/20 22:37 12/16/20 09:50 Acetaminophen 500 Mg Tablet PO 1,000 mg Q6H PRN Administration Mild Pain (1-3) or Fever
[2020-12-16] MEDS: REMDESIVIR 100 MG/NS 250 ML 100 MG/250 ML BAG 250 MG IVPB (20:06)
[2020-12-16] MEDS: MONTELUKAST SODIUM 10 MG TABLET PO (20:07)
[2020-12-16] MEDS: FLUoxetine HCL 20 MG CAPSULE 40 MG PO (20:07)
[2020-12-16] MEDS: ASCORBIC ACID 500 MG TABLET PO (20:07)
[2020-12-16 22:51] LABS: Glucose Point of Care 245 (65-105)
[2020-12-17] VITALS: BP 166/89; PULSE 67; RESP 20; TEMP 36.7; O2SAT 96
[2020-12-17] MEDS: ALBUTEROL SULFATE (*SP) AEROSOL 1 PUFF 2 PUFF INHALATION ×3 (03:32→13:35)
[2020-12-17 04:00] VITALS: BP 155/85; PULSE 69; RESP 20; TEMP 36.7; O2SAT 96
[2020-12-17 07:03] LABS: Alanine Aminotransferase 29 U/L (4-35); Estimated CRCL calculation 103 ml/min; Estimated Glomerular Filt Rate > 60
[2020-12-17 08:00] VITALS: BP 188/90; PULSE 67; RESP 20; TEMP 36.1; O2SAT 100
[2020-12-17 08:38] LABS: Glucose Point of Care 103 (65-105)
[2020-12-17] MEDS: buPROPion HCL XL (24 HR) 150 MG TABCR 300 MG PO (08:42)
[2020-12-17] MEDS: VERAPAMIL HCL ER 240 MG TABLET.ER PO (08:42)
[2020-12-17] MEDS: FOLIC ACID 1 MG TABLET PO (08:42)
[2020-12-17] MEDS: METOPROLOL SUCCINATE EXT REL 50 MG TABCR PO (08:42)
[2020-12-17] MEDS: LOSARTAN POTASSIUM 100 MG TABLET PO (08:43)
[2020-12-17] MEDS: ENOXAPARIN 40 MG/0.4 ML SYRINGE SUB-Q (08:43)
[2020-12-17] MEDS: PANTOPRAZOLE 40 MG TABLET PO (08:43)
[2020-12-17] MEDS: DEXAMETHASONE SOD PHOS INJ 4 MG/ML VIAL 6 MG IV PUSH (08:44)
[2020-12-17] MEDS: AZELASTINE HCL NASAL 0.1% 137 MCG/SPR 30 ML BTL 2 SPRAY NASAL (08:45)
[2020-12-17 12:00] VITALS: BP 153/78; PULSE 65; RESP 16; TEMP 36.2; O2SAT 99
[2020-12-17 12:17] LABS: Glucose Point of Care 112 (65-105)
--- NOTE | 2020-12-17 14:09 | PM.DS ---
DS: Admitting Diagnosis Admitting Diagnosis Admitting Diagnosis: Shortness of breath DS: Discharge Diagnosis Discharge Diagnosis (1) Pneumonia due to COVID-19 virus: Code(s): U07.1 - COVID-19; J12.82 - Pneumonia due to coronavirus disease 2018 Status: Acute Assessment and Plan: On Remdesivir and Dexamethasone Added antibacterial coverage (2) Mitral valve prolapse: Code(s): I34.1 - Nonrheumatic mitral (valve) prolapse Status: Chronic Assessment and Plan: Stable (3) Chronic GERD: Code(s): K21.9 - Gastro-esophageal reflux disease without esophagitis Status: Chronic Assessment and Plan: PPI (4) Hypertension: Code(s): I10 - Essential (primary) hypertension Status: Chronic Assessment and Plan: Uncontrolled, pt not on any medications Started on Lisinopril at 10 mg po daily. (5) DM2 (diabetes mellitus, type 2): Code(s): E11.9 - Type 2 diabetes mellitus without complications Status: Chronic Assessment and Plan: ADA ISS as needed (6) Osteoarthritis: Code(s): M19.90 - Unspecified osteoarthritis, unspecified site Status: Chronic Assessment and Plan: Stable On DMARD's (7) Migraines: Code(s): G43.909 - Migraine, unspecified, not intractable, without status migrainosus Status: Chronic Assessment and Plan: Tylenol prn (8) Psoriatic arthritis: Code(s): L40.50 - Arthropathic psoriasis, unspecified Status: Chronic Assessment and Plan: Stable On DMARD's DS: Summary Hospital Course Hospital Course: April Rutledge is a 65 year old female who has a history of asthma. The patient has been having a cough and shortness of breath with audible wheezing. The patient has been sick since 11/30/2020. Pt had recently been to a . Possible exposure there. Pt admitted to hospital treated with remdesivir, steroids and bacterial coverage. Time Spent with Patient Time attestation: Total time spent providing and/or coordinating discharge services: 40 minutes on day of discharge Exam Const: General: alert, awake and Physically active Chest: Chest palpation & inspection: normal inspection of the chest Resp: Effort & Inspection: able to speak in complete sentences Auscultation: clear to auscultation bilaterally Cardio: Jugular venous distension: no JVD Palpation: normal PMI Neuro: General: oriented to person, oriented to place and oriented to time Extrem: General: normal to inspection Psych: Appearance: grossly normal Mental Status: mental status grossly normal Speech and movement: Normal speech and movement present Affect: normal affect Attitude: cooperative Thought process: Normal thought process present Insight: Good insight present (Psych) Judgement: Good judgement present (Psych) DS: Data Data Completed and Pending Labs on day of discharge: Labs from last 24 hours 12/17/20 12/17/20 12/17/20 11:58 07:58 06:08 Creatinine 0.60 L Estim Creat Clear Calc 103 Estimated GFR > 60 POC Capillary Glucose 112 H 103 ALT 29 12/16/20 12/16/20 20:34 16:51 Creatinine Estim Creat Clear Calc Estimated GFR POC Capillary Glucose 245 H 147 H ALT Discharge Plan Discharge Attending physician on discharge: Cande Umaña Consulting providers: Ilana Dawn ; Amos Laguerre ; Maurizio Cr ; Abraham Quinonez Discharging Clinician: Cande Umaña Anticipated Discharge Date/Time: 12/17/20 14:03 Patient Disposition: Home, Self-Care Activity: as tolerated Diet: heart healthy Discharge Instructions: Quarantine for another 7 days. social distancing hand washing Patient Instructions: Antibiotic Form, Pain Management (GEN), Dyspnea (GEN), COVID-19 (Coronavirus Disease 2019) (GEN) Stand Alone Forms: General Discharge Information Follow-up/Referrals: Jose,Grecia Garsia MD [Primary Care Provider] - [facility]
[2020-12-17] MEDS: ACETAMINOPHEN 500 MG TABLET 1000 MG PO (14:49)
[2020-12-17 16:00] VITALS: BP 151/90; PULSE 73; RESP 20; TEMP 36.4; O2SAT 99
[2020-12-17] MEDS: REMDESIVIR 100 MG/NS 250 ML 100 MG/250 ML BAG 250 MG IVPB (16:20)
== END 2020-12-17 18:05 | disposition home or self-care (01) | DRG 177 ==
LOC: ANHED 14:55 → ANH3MEDSUR 15:42
PROVIDERS: Emergency Medicine; Nurse Practitioner; Admitting Provider Internal Medicine; Emergency Provider General Practice; PCP Family Medicine; Visit Provider Family Medicine
DX: U07.1 COVID-19 (principal); J12.82 Pneumonia due to coronavirus disease 2019; J45.901 Unspecified asthma with (acute) exacerbation; Z68.41 Body mass index [BMI] 40.0-44.9, adult; I34.1 Nonrheumatic mitral (valve) prolapse; K21.9 Gastro-esophageal reflux disease without esophagitis; I10 Essential (primary) hypertension; E11.9 Type 2 diabetes mellitus without complications; M19.90 Unspecified osteoarthritis, unspecified site; G43.909 Migraine, unspecified, not intractable, without status migrainosus; L40.50 Arthropathic psoriasis, unspecified; F41.8 Other specified anxiety disorders; E66.9 Obesity, unspecified; Z90.710 Acquired absence of both cervix and uterus; Z90.722 Acquired absence of ovaries, bilateral
CPT/HCPCS: 36415; 36430; 36600; 71045; 71275; 80048; 80053; 80076; 81001; 82375; 82565; 82805; 82948; 83036; 83050; 83880; 84460; 84484; 85025; 85380; 85610; 85730; 86900; 86901; 87040; 87070; 87205; 87804; 93005; 93971; 94640; 96361; 96365; 96367; 96372; 99285; A9270; C9803; G0378; J0360; J0456; J0696; J1100; J1650; J7030; J7050; J7512; P9059; Q9967; U0003; U0005